=== PATIENT | female | born 1965 | race Caucasian/White ===

== ENCOUNTER 2021-01-31 12:54 | Day surgery (SDC) | payer OTHER ==
[~2021-01-31] VITALS: Ht 170.2 cm; Wt 71.6 kg
[2021-01-31 14:47] VITALS: BP 128/60; PULSE 62; TEMP 98.2
[2021-01-31] MEDS ORDERED: TIROSINT88 MC1 PO (15:07)
[2021-01-31] MEDS ORDERED: PRAVACHOL 40MG40 MG PO (15:08)
[2021-01-31] MEDS ORDERED: NATURAL MAGNES200 MG PO (15:09)
[2021-01-31] MEDS ORDERED: FISH OIL1000 MG PO (15:09)
[2021-01-31] MEDS ORDERED: CALCIUM CARBON650 M2 PO (15:09)
[2021-01-31 16:04] VITALS: BP 128/74; PULSE 73
--- NOTE | 2021-01-31 16:04 | NUR ---
Patient returns to room 7 per cart from PACU and is awake and alert. tEmp 96.4 and warm blankets on. Room air sats 100%. Siderails up x2 and call light in reach.
[2021-01-31 16:19] VITALS: BP 129/81; PULSE 63
--- NOTE | 2021-01-31 16:19 | NUR ---
Assisted up to the bathroom and gait is steady. Voids pink urine and returns to room. Drinking water and sipping on hot chocolate.
[2021-01-31 16:34] VITALS: BP 115/88; PULSE 63
--- NOTE | 2021-01-31 16:34 | NUR ---
Room air sats 100%. IV discontinued and site is free of redness. Again ambulatory to the bathroom.
--- NOTE | 2021-01-31 16:40 | NUR ---
Patient dresses self. Denies pain or nausea.
--- NOTE | 2021-01-31 16:53 | NUR ---
Dismissal instructions given and voices understanding of these and follow up appointment.
--- NOTE | 2021-01-31 16:55 | NUR ---
Patient dismissed to home driven by daughter and taken to the front door per wheelchair and assisted into vehicle by Linda CAZARES and is dismissal instructions in hand.
== END 2021-01-31 16:55 | disposition home or self-care (01) ==
LOC: SDCO 12:54
DX: N20.1 Calculus of ureter (principal); E78.00 Pure hypercholesterolemia, unspecified; E03.9 Hypothyroidism, unspecified; Z90.710 Acquired absence of both cervix and uterus; Z88.2 Allergy status to sulfonamides; E78.5 Hyperlipidemia, unspecified; Z85.41 Personal history of malignant neoplasm of cervix uteri
CPT/HCPCS: J0690; J1885; J2250; J2704; J7120; Q9967